=== PATIENT | male | born 1995 | race Caucasian/White ===

== ENCOUNTER 2017-09-20 23:10 | Outpatient (CLI) | payer OTHER | END 2017-09-20 23:11 | disposition critical access hospital (66) | LOC: EMS 23:10 | PROVIDERS: ATTEND Surgery | DX: R41.82 Altered mental status, unspecified (principal) | CPT/HCPCS: A0425; A0429 ==

== ENCOUNTER 2017-09-20 23:36 | Emergency (ER) | payer OTHER ==
[2017-09-21 00:12] LABS: BASOPHILS % (AUTO) 0.5 %; EOSINOPHILS % (AUTO) 0.1 %; HGB - HEMOGLOBIN 15.9 g/dL (14.0-18.0); LYMPHOCYTES # (AUTO) 1.6 10^3/uL (1.5-3.5); LYMPHOCYTES % (AUTO) 20.1 %; MEAN CORPUSCULAR HEMOGLOBIN 30.4 pg (27.0-31.0); MEAN CORPUSCULAR HGB CONC 33.7 g/dL (32.0-36.0); MEAN CORPUSCULAR VOLUME 90.1 fL (80.0-94.0); MEAN PLATELET VOLUME 7.2 fL (7.4-11.4); MONOCYTES # (AUTO) 0.5 10^3/uL (0.0-1.0); NEUTROPHILS % (AUTO) 73.3 %; PLT - PLATELET COUNT 262 10^3/uL (130-450); RED BLOOD COUNT 5.24 10^6/uL (4.70-6.10); RED CELL DISTRIBUTION WIDTH 14.6 % (12.0-15.0); WHITE BLOOD COUNT 8.1 x10^3/uL (4.8-10.8)
[2017-09-21 00:22] LABS: CALCIUM 9.4 mg/dL (8.5-10.3)
[2017-09-21 01:35] LABS: MUDS CUTOFF CONCENTRATIONS CUTOFF CONC BELOW:
[2017-09-21 01:47] LABS: AMPHETAMINE SCREEN,URINE NEGATIVE (NEGATIVE); BENZODIAZEPINES SCREEN, URINE NEGATIVE (NEGATIVE); COCAINE SCREEN URINE NEGATIVE (NEGATIVE); METHADONE SCREEN, URINE NEGATIVE (NEGATIVE); METHAMPHETAMINES SCREEN, URINE NEGATIVE (NEGATIVE); OPIATE SCREEN, URINE NEGATIVE (NEGATIVE); OXYCODONE SCREEN, URINE NEGATIVE (NEGATIVE); PROPOXYPHENE SCREEN, URINE NEGATIVE (NEGATIVE); TRICYCLIC ANTIDEPRESSANT,URINE NEGATIVE (NEGATIVE)
--- NOTE | 2017-09-21 03:53 | ED Physician Documentation ---
PD HPI ALTERED MENTAL STATUS - Stated complaint Stated Complaint: ALOC - Chief complaint Chief Complaint: MHE - History obtained from History obtained from: Patient, EMS - History of Present Illness Timing - onset: Today Quality / character: Unresponsive Contributing factors: Substance abuse Basline status: Alert and oriented X 3 Similar symptoms before: No diagnosis Recently seen: Not recently seen - Additional information Additional information: Patient is a 22 year old male with unknown past medical history who was brought into the emergency department for altered mental status. According to ems patient had been drinking and was found unconcious in his room. "spice" was also found in his room. Upon arrival to the emergency department patient was easily arousable. Review of Systems Unable to obtain: [facility] PD PAST MEDICAL HISTORY - Past Medical History Past Medical History: No - Past Surgical History Past Surgical History: No - Present Medications Home Medications: Ambulatory Orders Medication Instructions Recorded Confirmed No Known Home Medications [No 09/20/17 09/20/17 Known Home Medications] - Allergies Allergies/Adverse Reactions: Allergies Allergy/AdvReac Type Severity Reaction Status Date / Time No Known Drug Allergies Allergy Verified 09/20/17 23:45 - Social History Does the pt smoke?: No Smoking Status: Never smoker Does the pt drink ETOH?: Yes Does the pt have substance abuse?: Yes Substance Use and Type: Other - Immunizations Immunizations are current?: Yes - POLST Patient has POLST: No PD ED PE NORMAL - Vitals Vital signs reviewed: Yes - HEENT HEENT: Atraumatic - Neck Neck: Supple, no meningeal sign - Cardiac Cardiac: RRR, No murmur - Respiratory Respiratory: No respiratory distress - Abdomen Abdomen: Soft, Non tender, Non distended - Derm Derm: Normal color, Warm and dry, No rash - Extremities Extremities: No deformity, Normal ROM s pain - Neuro Neuro: No motor deficit PD ED PE EXPANDED - Eyes Eyes: PERRL, Other (dilated pupils) - GCS Eye Opening: To Voice Motor: Localizes to Pain Verbal: Confused Total: 12 Results - Vitals Vitals: Vital Signs - 24 hr 09/20/17 09/21/17 23:37 05:54 Temperature 36.8 C 36.5 C Heart Rate 98 66 Respiratory 20 16 Rate Blood Pressure 150/80 H 116/60 O2 Saturation 98 99 Oxygen O2 Source Room air - Labs Labs: Laboratory Tests 09/21/17 09/21/17 09/21/17 00:05 00:05 01:25 WBC 8.1 RBC 5.24 Hgb 15.9 Hct 47.2 MCV 90.1 MCH 30.4 MCHC 33.7 RDW 14.6 Plt Count 262 MPV 7.2 L Neut # 6.0 Lymph # 1.6 Randolph # 0.5 Eos # 0.0 Baso # 0.0 Absolute Nucleated RBC 0.00 Nucleated RBC % 0.0 Sodium 139 Potassium 3.8 Chloride 101 Carbon Dioxide 24 Anion Gap 14.0 H BUN 8 Creatinine 1.0 Estimated GFR (MDRD) 94 Glucose 86 Calcium 9.4 Urine Opiates Screen NEGATIVE Ur Oxycodone Screen NEGATIVE Urine Methadone Screen NEGATIVE Ur Propoxyphene Screen NEGATIVE Ur Barbiturates Screen NEGATIVE Ur Tricyclics Screen NEGATIVE Ur Phencyclidine Scrn NEGATIVE Ur Amphetamine Screen NEGATIVE U Methamphetamines Scrn NEGATIVE U Benzodiazepines Scrn NEGATIVE Urine Cocaine Screen NEGATIVE U Cannabinoids Screen NEGATIVE Ethyl Alcohol 65.3 PD MEDICAL DECISION MAKING - ED course Complexity details: reviewed old records, reviewed results, re-evaluated patient , considered differential, d/w patient ED course: Patient was seen and examined at bedside. Patient was arousable. labs were drawn and urine was eventually collected. Patient metabolized whatever substances he had take. Patient was appropriate for discharge, but case was discussed with a superior officer who stated that patient showed up to his assignment intoxicated this morning. Patient was sent home, but took more substances this evening and passed out. the officer stated that the patient recently witnessed his friend dying from an overdose over the holiday and states that he didn't feel right putting him at home alone, and there was no one who could watch him overnight. it was agreed that the patient would be observed in the emergency department overnight. In the morning patient continued to deny any suicidal or homicidal ideation and went home with his superior officer. Departure - Departure Disposition: Home, Self Care Clinical Impression: Substance abuse Instructions: ED Stress React Follow-Up: primary,care provider [Other] - Within 3 Days Comments: Morning the loss of a friend is a difficult thing to do. While substances may help alleviate the pain temporarily it is not a termite exterminator solution. It is important that you seek help and someone to talk with. You should return to the emergency department at any time if you have any thoughts of hurting yourself or anyone else at any time. Discharge Date/Time: 09/21/17 05:54
[2017-09-21 05:59] VITALS: BP 116/60
== END 2017-09-21 05:54 | disposition home or self-care (01) ==
LOC: ED 23:36
DX: F19.10 Other psychoactive substance abuse, uncomplicated (principal)
CPT/HCPCS: 36415; 80048; 80306; 80320; 85025; 99283